=== PATIENT | male | born 1940 | race Caucasian/White ===

== ENCOUNTER → 2017-02-24 | Outpatient (CLI) | payer MEDICARE, BC ==
[~2017-02-24] MED LIST: ACET650T8 PO; ALBU0.63 NEB; ALPR0.257 PO; ALPR1TAB6 PO; ATOR40TA78 PO; AZIT250T89 PO; BUTA1CAP30 PO; CEFD300C37 PO; ENOX40SY4 SQ; FLUT12HF3 IH; FURO40TA6 PO; GABA300C10 PO; HYDR-3307 PO; IPRA4AER INH; LEVA15HF2 INH; LEVO5TAB29 PO; LORA1TAB PO; MELO-184 PO; NITR1PAT26 TD; POTA10TA11 PO; PROP20TA PO; SERT50TA5 PO; TIOT18CA INH; TRAM-28 PO; TRAM50TA2 PO
== END | disposition home or self-care (01) ==
LOC: CVU 11:37
PROVIDERS: ATTEND Internal Medicine Cardiovascular Disease
DX: I35.0 Nonrheumatic aortic (valve) stenosis (principal); I51.7 Cardiomegaly; I25.10 Atherosclerotic heart disease of native coronary artery without angina pectoris; E11.9 Type 2 diabetes mellitus without complications; J44.9 Chronic obstructive pulmonary disease, unspecified; Z95.1 Presence of aortocoronary bypass graft
CPT/HCPCS: 93306

== ENCOUNTER → 2019-06-22 | Outpatient (CLI) | payer MEDICARE, BC ==
[~2019-06-22] MED LIST changes: +ACET-814 PO; -ACET650T8 PO; -HYDR-3307 PO; +HYDR-36 PO; -LEVA15HF2 INH; +LEVA15HF4 INH; -MELO-184 PO; +MELO15TA24 PO; +SERT50TA28 PO; -SERT50TA5 PO; -TRAM-28 PO; +TRAM-47 PO
[2019-06-22 13:12] LABS: CHLORIDE 103 mmol/L (98-107)
[2019-06-22 13:22] LABS: ALANINE AMINOTRANSFERASE 29 U/L (12-78); ALBUMIN 3.7 g/dL (3.4-5.0); ALKALINE PHOSPHATASE 92 U/L (45-117); BILIRUBIN,TOTAL 0.5 mg/dL (0.2-1.0); CALCIUM 8.6 mg/dL (8.5-10.1); CHOL/HDL RATIO 4.5; CHOLESTEROL, TOTAL 180 mg/dL (140-239); CREATININE 1.15 mg/dL (0.7-1.3); HDL CHOL % 22 % (26-37); HDL CHOLESTEROL (DIRECT) 40 mg/dL (40-60); LDL CHOLESTEROL,CALCULATED 101 mg/dL (54-169); LDL/HDL RATIO 2.5 (0.5-3.0); TOTAL PROTEIN 7.3 g/dL (6.4-8.2); TRIGLYCERIDES 197 mg/dL (50-200); VLDL CHOLESTEROL 39 mg/dL (0-25)
[2019-06-22 13:25] LABS: ANION GAP 3 mmol/L (5-15)
== END | disposition home or self-care (01) ==
LOC: CFH 11:31
PROVIDERS: ATTEND Internal Medicine
DX: I25.10 Atherosclerotic heart disease of native coronary artery without angina pectoris (principal); J40 Bronchitis, not specified as acute or chronic; J18.9 Pneumonia, unspecified organism; E78.5 Hyperlipidemia, unspecified; J44.9 Chronic obstructive pulmonary disease, unspecified; Z87.891 Personal history of nicotine dependence
CPT/HCPCS: 36415; 71250; 80053; 80061

== ENCOUNTER 2019-08-26 13:02 | Inpatient (IN) | payer MEDICARE, BC ==
[~2019-08-26] VITALS: Ht 167.6 cm; Wt 82.0 kg
[2019-08-26 13:45] VITALS: BP 108/77
[2019-08-26 14:25] VITALS: BP 138/71
[2019-08-26] MEDS ORDERED: ENOXAPARIN 80 MG/0.8 ML SQ SCH (15:30)
[2019-08-26] MEDS ORDERED: ALBUTEROL/IPRATROPIUM 2.5MG/0.5MG, 3 ML ONE (15:35)
[2019-08-26 15:50] VITALS: BP 113/86
[2019-08-26] MEDS: INSULIN LISPRO 100 UNITS/ML, PEN SQ-INSULIN SCH ×2 (15:56→19:49)
[2019-08-26] MEDS: PROPRANOLOL 20 MG TABLET PO SCH ×2 (15:56→20:33)
[2019-08-26] MEDS ORDERED: ALBUTEROL/IPRATROPIUM 2.5MG/0.5MG, 3 ML NPPB PRN (16:00)
[2019-08-26 16:07] LABS: ANION GAP 4 mmol/L (5-15); CHLORIDE 105 mmol/L (98-107)
[2019-08-26 16:11] LABS: CREATININE 1.24 mg/dL (0.7-1.3); TROPONIN I < 0.015 ng/mL (0.000-0.045)
[2019-08-26 16:12] LABS: BASOPHILS # (AUTO) 0.01 x10^3/uL (0-0.1); BASOPHILS % (AUTO) 0 % (0-1); EOSINOPHILS # (AUTO) 0.23 x10^3/uL (0-0.4); EOSINOPHILS % (AUTO) 2 % (1-7); LYMPHOCYTES # (AUTO) 0.58 x10^3/uL (1-3.4); LYMPHOCYTES % (AUTO) 4 % (22-44); MD NO; MEAN CORPUSCULAR HEMOGLOBIN 29.5 pg (27.5-34.5); MEAN CORPUSCULAR HGB CONC 32.2 g/dL (33.2-36.2); MEAN CORPUSCULAR VOLUME 91.4 fL (81-97); MEAN PLATELET VOLUME 8.9 fL (7.4-10.4); MONOCYTES # (AUTO) 0.81 x10^3/uL (0.2-0.8); MONOCYTES % (AUTO) 6 % (2-9); NEUTROPHILS # (AUTO) 11.76 x10^3/uL (1.8-6.8); NEUTROPHILS % (AUTO) 88 % (42-75); PLATELET COUNT 184 x10^3/uL (130-400); RED BLOOD COUNT 3.94 x10^6/uL (4.38-5.82); RED CELL DISTRIBUTION WIDTH 13.9 % (9.4-14.8)
[2019-08-26 19:33] VITALS: BP 116/70
[2019-08-26] MEDS: LACTULOSE 10 GM/15 ML UDC PO SCH (20:32)
[2019-08-26] MEDS: POTASSIUM CHLORIDE 20 MEQ TAB.ER.PRT PO SCH (20:33)
[2019-08-26] MEDS: methylPREDNISolone SOD SUCC 40 MG/ML IVPush SCH (20:33)
[2019-08-26] MEDS: GABAPENTIN 300 MG CAPSULE PO SCH (20:33)
[2019-08-26] MEDS: ALPRazolam 1MG TAB PO PRN (20:43)
[2019-08-26] MEDS: ACETAMINOPHEN 325 MG TABLET PO PRN (20:43)
[2019-08-26] MEDS: ALBUTEROL/IPRATROPIUM 2.5MG/0.5MG, 3 ML NPPB SCH (21:40)
[2019-08-27] MEDS: ENOXAPARIN 80 MG/0.8 ML SQ SCH ×3 (00:26→23:26)
[2019-08-27 00:28] VITALS: BP 160/77
[2019-08-27] MEDS: ACETAMINOPHEN 325 MG TABLET PO PRN ×2 (04:33→21:28)
[2019-08-27] MEDS: ALPRazolam 1MG TAB PO PRN ×2 (04:33→21:28)
[2019-08-27] MEDS: ASPIRIN 81 MG TABLET EC PO SCH (04:33)
[2019-08-27 04:50] VITALS: BP 158/90
[2019-08-27 06:34] LABS: BASOPHILS # (AUTO) 0.01 x10^3/uL (0-0.1); BASOPHILS % (AUTO) 0 % (0-1); EOSINOPHILS % (AUTO) 1 % (1-7); LYMPHOCYTES % (AUTO) 5 % (22-44); MD NO; MEAN CORPUSCULAR HEMOGLOBIN 29.7 pg (27.5-34.5); MEAN CORPUSCULAR HGB CONC 32.5 g/dL (33.2-36.2); MEAN CORPUSCULAR VOLUME 91.4 fL (81-97); MEAN PLATELET VOLUME 8.7 fL (7.4-10.4); MONOCYTES % (AUTO) 4 % (2-9); NEUTROPHILS % (AUTO) 90 % (42-75); PLATELET COUNT 185 x10^3/uL (130-400); RED BLOOD COUNT 3.79 x10^6/uL (4.38-5.82); RED CELL DISTRIBUTION WIDTH 14.4 % (9.4-14.8)
[2019-08-27 06:39] LABS: ANION GAP 6 mmol/L (5-15); CALCIUM 7.8 mg/dL (8.5-10.1); CHLORIDE 105 mmol/L (98-107)
[2019-08-27 06:44] LABS: CREATININE 1.14 mg/dL (0.7-1.3); TROPONIN I < 0.015 ng/mL (0.000-0.045)
[2019-08-27 06:46] LABS: INTERNATIONAL NORMALIZED RATIO 0.99 (0.93-1.1); PROTHROMBIN TIME 10.5 Seconds (9.6-11.5)
[2019-08-27 06:47] VITALS: BP 139/82
[2019-08-27] MEDS: INSULIN LISPRO 100 UNITS/ML, PEN SQ-INSULIN SCH ×4 (07:00→21:28)
[2019-08-27] MEDS: ALBUTEROL/IPRATROPIUM 2.5MG/0.5MG, 3 ML NPPB SCH ×4 (07:45→19:30)
[2019-08-27] MEDS: methylPREDNISolone SOD SUCC 40 MG/ML IVPush SCH ×2 (09:09→21:28)
[2019-08-27] MEDS: PROPRANOLOL 20 MG TABLET PO SCH (09:10)
[2019-08-27] MEDS: ATORVASTATIN 40 MG TABLET PO SCH (09:10)
[2019-08-27] MEDS: SERTRALINE 50MG TABLET PO SCH (09:10)
[2019-08-27] MEDS: POTASSIUM CHLORIDE 20 MEQ TAB.ER.PRT PO SCH ×2 (09:10→21:28)
[2019-08-27] MEDS: GABAPENTIN 300 MG CAPSULE PO SCH ×2 (09:10→21:28)
[2019-08-27] MEDS: LACTULOSE 10 GM/15 ML UDC PO SCH ×2 (09:11→21:00)
[2019-08-27 10:55] LABS: % IRON SATURATION 24 % (20-55); IRON LEVEL 61 mcg/dL (65-175); TOTAL IRON BINDING CAPACITY 249 mcg/dL (250-450)
[2019-08-27 12:18] VITALS: BP 129/76
[2019-08-27 19:12] VITALS: BP 148/82
[2019-08-27 19:46] LABS: OCCULT BLOOD NEGATIVE (NEGATIVE)
[2019-08-27 21:48] VITALS: BP 148/85
[2019-08-27 22:34] LABS: TROPONIN I < 0.015 ng/mL (0.000-0.045)
[2019-08-27] MEDS: morphine SULFATE 10 MG/ML, 1ML IVPush PRN ×2 (22:54→23:22)
[2019-08-28 01:58] VITALS: BP 151/92
[2019-08-28 04:06] LABS: MEAN CORPUSCULAR HEMOGLOBIN 29.7 pg (27.5-34.5); MEAN CORPUSCULAR HGB CONC 32.2 g/dL (33.2-36.2); MEAN CORPUSCULAR VOLUME 92.3 fL (81-97); MEAN PLATELET VOLUME 8.4 fL (7.4-10.4); PLATELET COUNT 196 x10^3/uL (130-400); RED BLOOD COUNT 3.78 x10^6/uL (4.38-5.82); RED CELL DISTRIBUTION WIDTH 14.1 % (9.4-14.8)
[2019-08-28 04:12] LABS: ALBUMIN 2.6 g/dL (3.4-5.0); ANION GAP 6 mmol/L (5-15); CALCIUM 7.8 mg/dL (8.5-10.1); CHLORIDE 107 mmol/L (98-107)
[2019-08-28 04:17] LABS: ALANINE AMINOTRANSFERASE 30 U/L (12-78); ALKALINE PHOSPHATASE 60 U/L (45-117); BILIRUBIN,TOTAL 0.5 mg/dL (0.2-1.0); CREATININE 1.04 mg/dL (0.7-1.3); TOTAL PROTEIN 6.1 g/dL (6.4-8.2); TROPONIN I < 0.015 ng/mL (0.000-0.045)
[2019-08-28 04:38] LABS: BASOPHILS % (AUTO) 1 % (0-1); EOSINOPHILS # (AUTO) 0.01 x10^3/uL (0-0.4); EOSINOPHILS % (AUTO) 0 % (1-7); LYMPHOCYTES # (AUTO) 0.45 x10^3/uL (1-3.4); LYMPHOCYTES % (AUTO) 4 % (22-44); MD SCAN; MONOCYTES # (AUTO) 0.22 x10^3/uL (0.2-0.8); MONOCYTES % (AUTO) 2 % (2-9); NEUTROPHILS # (AUTO) 9.56 x10^3/uL (1.8-6.8); NEUTROPHILS % (AUTO) 93 % (42-75)
[2019-08-28] MEDS: ASPIRIN 81 MG TABLET EC PO SCH (05:16)
[2019-08-28] MEDS: ALBUTEROL/IPRATROPIUM 2.5MG/0.5MG, 3 ML NPPB SCH ×4 (07:00→19:41)
[2019-08-28 07:06] VITALS: BP 147/87
[2019-08-28] MEDS: INSULIN LISPRO 100 UNITS/ML, PEN SQ-INSULIN SCH ×4 (07:57→21:02)
[2019-08-28] MEDS: methylPREDNISolone SOD SUCC 40 MG/ML IVPush SCH ×2 (07:57→21:01)
[2019-08-28] MEDS: SERTRALINE 50MG TABLET PO SCH (07:58)
[2019-08-28] MEDS: POTASSIUM CHLORIDE 20 MEQ TAB.ER.PRT PO SCH (07:58)
[2019-08-28] MEDS: GABAPENTIN 300 MG CAPSULE PO SCH ×2 (07:58→21:01)
[2019-08-28] MEDS: ATORVASTATIN 40 MG TABLET PO SCH (07:58)
[2019-08-28] MEDS: LACTULOSE 10 GM/15 ML UDC PO SCH ×2 (08:00→21:00)
[2019-08-28] MEDS: ENOXAPARIN 80 MG/0.8 ML SQ SCH (12:44)
[2019-08-28 13:14] VITALS: BP 136/82
[2019-08-28] MEDS: ALPRazolam 1MG TAB PO PRN (17:30)
[2019-08-28 18:34] VITALS: BP 144/84
[2019-08-28] MEDS: ACETAMINOPHEN 325 MG TABLET PO PRN (21:03)
[2019-08-28] MEDS: morphine SULFATE 10 MG/ML, 1ML IVPush PRN (21:14)
[2019-08-29] MEDS: ENOXAPARIN 80 MG/0.8 ML SQ SCH (01:02)
[2019-08-29 01:22] VITALS: BP 149/82
[2019-08-29] MEDS: ASPIRIN 81 MG TABLET EC PO SCH (04:39)
[2019-08-29 06:14] LABS: BASOPHILS % (AUTO) 0 % (0-1); EOSINOPHILS # (AUTO) 0.01 x10^3/uL (0-0.4); EOSINOPHILS % (AUTO) 0 % (1-7); LYMPHOCYTES # (AUTO) 0.53 x10^3/uL (1-3.4); LYMPHOCYTES % (AUTO) 6 % (22-44); MD NO; MEAN CORPUSCULAR HEMOGLOBIN 29.7 pg (27.5-34.5); MEAN CORPUSCULAR HGB CONC 32.4 g/dL (33.2-36.2); MEAN CORPUSCULAR VOLUME 91.5 fL (81-97); MEAN PLATELET VOLUME 8.4 fL (7.4-10.4); MONOCYTES # (AUTO) 0.39 x10^3/uL (0.2-0.8); MONOCYTES % (AUTO) 4 % (2-9); NEUTROPHILS # (AUTO) 8.23 x10^3/uL (1.8-6.8); NEUTROPHILS % (AUTO) 90 % (42-75); PLATELET COUNT 195 x10^3/uL (130-400); RED BLOOD COUNT 3.66 x10^6/uL (4.38-5.82)
[2019-08-29 06:29] LABS: ANION GAP 4 mmol/L (5-15); CHLORIDE 107 mmol/L (98-107)
[2019-08-29 06:30] LABS: CREATININE 0.96 mg/dL (0.7-1.3)
[2019-08-29 06:48] VITALS: BP 160/94
[2019-08-29] MEDS: ALBUTEROL/IPRATROPIUM 2.5MG/0.5MG, 3 ML NPPB SCH ×3 (07:00→14:12)
[2019-08-29] MEDS: INSULIN LISPRO 100 UNITS/ML, PEN SQ-INSULIN SCH ×2 (08:11→11:00)
[2019-08-29] MEDS ORDERED: APIXABAN 5 MG TABLET PO SCH (09:00)
[2019-08-29] MEDS ORDERED: PANTOPROZOLE 40MG TABLET PO SCH (09:00)
[2019-08-29] MEDS: LACTULOSE 10 GM/15 ML UDC PO SCH (09:00)
[2019-08-29] MEDS: SERTRALINE 50MG TABLET PO SCH (09:08)
[2019-08-29] MEDS: ATORVASTATIN 40 MG TABLET PO SCH (09:08)
[2019-08-29] MEDS: GABAPENTIN 300 MG CAPSULE PO SCH (09:09)
[2019-08-29] MEDS ORDERED: PRED20TA PO (12:57)
[2019-08-29] MEDS ORDERED: APIX5TAB PO (12:57)
[2019-08-29] MEDS ORDERED: PANT40TA5 PO (12:57)
[2019-08-29 13:39] VITALS: BP 168/62
[2019-09-05] MEDS ORDERED: APIXABAN 5 MG TABLET PO SCH (09:00)
== END 2019-08-29 14:55 | disposition home health service (06) | DRG 175 ==
LOC: 4WST 13:39 → DCLOUNGE 08-29 14:41
PROVIDERS: ADMIT Internal Medicine Infectious Disease; ATTEND Internal Medicine
DX: I26.99 Other pulmonary embolism without acute cor pulmonale (principal); J96.21 Acute and chronic respiratory failure with hypoxia; D68.59 Other primary thrombophilia; J44.1 Chronic obstructive pulmonary disease with (acute) exacerbation; D63.8 Anemia in other chronic diseases classified elsewhere; E11.65 Type 2 diabetes mellitus with hyperglycemia; G25.0 Essential tremor; G89.29 Other chronic pain; I08.1 Rheumatic disorders of both mitral and tricuspid valves; I11.9 Hypertensive heart disease without heart failure; I25.10 Atherosclerotic heart disease of native coronary artery without angina pectoris; I27.20 Pulmonary hypertension, unspecified; I44.0 Atrioventricular block, first degree; Z83.3 Family history of diabetes mellitus; Z95.1 Presence of aortocoronary bypass graft; Z79.899 Other long term (current) drug therapy
CPT/HCPCS: 36415; 80048; 80053; 82272; 82962; 83036; 83540; 83550; 84484; 85025; 85610; 93005; 93306; 93970; 94640; G0378; J1650; J7620; J1815; J2270; J2920; J7512

== ENCOUNTER → 2020-11-13 | Outpatient (CLI) | payer MEDICARE, BC ==
[~2020-11-13] MED LIST changes: +ALPR-585 PO; -ALPR1TAB6 PO; +APIX5TAB PO; +HYDR-3248 PO; -HYDR-36 PO; +PANT40TA6 PO; +PRED20TA PO; +REGADENOSON 0.4 MG/5 ML SYRINGE ONE
== END | disposition home or self-care (01) ==
LOC: CFH 12:28
PROVIDERS: ATTEND Internal Medicine Cardiovascular Disease
DX: I25.10 Atherosclerotic heart disease of native coronary artery without angina pectoris (principal); R06.02 Shortness of breath; I10 Essential (primary) hypertension
CPT/HCPCS: 78452; 93017; A9502; J2785